=== PATIENT | male | born 1970 | race American Indian/Alaskan Native ===

== ENCOUNTER 2017-04-16 00:59 | Emergency (ER) | payer OTHER ==
--- NOTE | 2017-04-16 04:32 | XRay Report ---
FINAL REPORT EXAM: XR CHEST ROUTINE 2V HISTORY: Cough, Chest tightness TECHNIQUE: PA and lateral views of the chest were submitted. FINDINGS: The heart size and mediastinum appear normal. The lungs are clear. Pleural fluid is not seen. The bones and soft tissues appear well maintained. IMPRESSION: No active chest disease.
[2017-04-16 04:47] LABS: Basophils # (Auto) 0.1 K/mm3 (0.0-0.1); Eosinophils % (Auto) 0.6 % (0.0-4.3); Hematocrit 39.4 % (35.5-45.6); Hemoglobin 13.4 gm/dl (11.8-15.2); Lymphocytes # (Auto) 2.8 K/mm3 (1.2-5.4); Lymphocytes % (Auto) 41.5 % (13.4-35.0); Mean Corpuscular HGB Conc 34 % (32-34); Mean Corpuscular Hemoglobin 30 pg (28-32); Mean Corpuscular Volume 87 fl (84-94); Monocytes # (Auto) 0.5 K/mm3 (0.0-0.8); Platelet Count 202 K/mm3 (140-440); Red Blood Count 4.53 M/mm3 (3.65-5.03); Red Cell Distribution Width 13.1 % (13.2-15.2)
[2017-04-16 05:05] LABS: BUN/Creatinine Ratio 16; Blood Urea Nitrogen 13 mg/dL (9-20); Calcium 8.7 mg/dL (8.4-10.2); Hemolysis Index 10
[2017-04-16 08:39] LABS: Bacteria,Urine 1+ /HPF (Negative); Bilirubin,Urine NEG (Negative); Blood,Urine NEG (Negative); Color,Urine Yellow (Yellow); Mucus,Urine FEW /HPF; Nitrite,Urine NEG (Negative)
[2017-04-16] MEDS ORDERED: K-DUR PO ONE (14:18)
[2017-04-16] MEDS ORDERED: NACL 0.9% 1000 ML 1,000 ML IV ONE (14:18)
--- NOTE | 2017-04-16 15:00 | Emergency Department Report ---
ED General Adult HPI - General Chief complaint: Upper Respiratory Infection Stated complaint: FLU-LIKE SX Time Seen by Provider: 04/16/17 14:08 Source: patient Mode of arrival: Ambulatory Limitations: No Limitations - History of Present Illness Initial comments: Patient reports being flulike symptoms. He denies cough. He states he's had a minimal amount of diarrhea. He's had no shortness of No chest pain no abdominal pain. He does report poor oral intake. He states that he has not measured his temperature at home nor had any shaking chills. He does report a minimal amount of dysuria and a change in his urine odor. Patient has a history of HIV but denies any serious or life-threatening infections which would be AIDS defining or otherwise. He states he went to his infectious disease clinic in [facility] 2 weeks ago and had blood work. He does not know anything about his CD4 counts. However he has never been specifically told that they are low. He is compliant with his HIV medicines. -: days(s) Location: upper extremity, lower extremity (some myalgias) Quality: aching Consistency: intermittent, now resolved Improves with: none Worsens with: none Associated Symptoms: denies other symptoms, other (diarrhea and symptoms as above) Treatments Prior to Arrival: none - Related Data Previous Rx's Medication Instructions Recorded Last Taken Type Emtricita/Rilpivirine/Tenof Df 1 tab PO DAILY #30 tablet 05/17/14 08/08/14 Rx [Complera Tablet] Glipizide/Metformin HCl 2.5 mg PO DAILY #30 tablet 05/17/14 08/08/14 Rx [glipiZIDE-Metformin 2.5-250 mg] Losartan [Cozaar] 25 mg PO QDAY #30 tablet 05/17/14 08/07/14 Rx Cipro/Dexameth 0.3/0.1% [Ciprodex 2 drops OU BID #1 bottle 08/10/14 Unknown Rx Otic 0.3%-0.1%] Loratadine [Claritin] 10 mg PO DAILY #30 tablet 06/18/15 Unknown Rx predniSONE [Deltasone] 20 mg PO QDAY #5 tab 06/18/15 Unknown Rx Cyclobenzaprine [Flexeril] 10 mg PO TID PRN #20 tablet 08/03/15 Unknown Rx Ibuprofen [Motrin 800 MG tab] 800 mg PO Q8HR PRN #30 tablet 08/03/15 Unknown Rx Nitrofurantoin Monohyd/M-Cryst 100 mg PO BID #14 capsule 04/16/17 Unknown Rx [Macrobid 100 mg Capsule] Allergies Allergy/AdvReac Type Severity Reaction Status Date / Time cefazolin sodium [From Ancef] Allergy Rash Verified 05/11/13 01:26 clindamycin Allergy Rash Verified 05/11/13 01:26 sulfamethoxazole Allergy Rash Verified 05/11/13 01:26 [From Bactrim] trimethoprim [From Bactrim] Allergy Rash Verified 05/11/13 01:26 ED Review of Systems ROS: Stated complaint: FLU-LIKE SX Other details as noted in HPI Constitutional: malaise. denies: chills, fever, weakness Eyes: denies: eye pain, eye discharge, vision change ENT: denies: ear pain, throat pain Respiratory: denies: cough, shortness of breath, wheezing Cardiovascular: denies: chest pain, palpitations Endocrine: no symptoms reported Gastrointestinal: diarrhea, other (poor by mouth intake). denies: abdominal pain, nausea, vomiting Genitourinary: as per HPI, dysuria (minimal). denies: urgency Musculoskeletal: denies: back pain, joint swelling, arthralgia Skin: denies: rash, lesions Neurological: denies: headache, weakness, paresthesias Psychiatric: denies: anxiety, depression Hematological/Lymphatic: denies: easy bleeding, easy bruising ED Past Medical Hx - Past Medical History Previous Medical History?: Yes Hx Hypertension: Yes Hx Congestive Heart Failure: No Hx Diabetes: Yes Hx Sickle Cell Disease: No Hx Asthma: No Hx COPD: No Hx HIV: Yes Additional medical history: HIV+ - Surgical History Past Surgical History?: No - Social History Smoking Status: Current Every Day Smoker Substance Use Type: Alcohol - Medications Home Medications: Home Medications Medication Instructions Recorded Confirmed Last Taken Type Emtricita/Rilpivirine/Tenof Df 1 tab PO DAILY #30 tablet 05/17/14 08/09/1408/08 Rx [Complera Tablet] Glipizide/Metformin HCl 2.5 mg PO DAILY #30 tablet 05/17/14 08/09/14 08/08/14 Rx [glipiZIDE-Metformin 2.5-250 mg] Losartan [Cozaar] 25 mg PO QDAY #30 tablet 05/17/14 08/09/14 08/07/14 Rx Cipro/Dexameth 0.3/0.1% [Ciprodex 2 drops OU BID #1 bottle 08/10/14 Unknown Rx Otic 0.3%-0.1%] Loratadine [Claritin] 10 mg PO DAILY #30 tablet 06/18/15 Unknown Rx predniSONE [Deltasone] 20 mg PO QDAY #5 tab 06/18/15 Unknown Rx Cyclobenzaprine [Flexeril] 10 mg PO TID PRN #20 tablet 08/03/15 Unknown Rx Ibuprofen [Motrin 800 MG tab] 800 mg PO Q8HR PRN #30 tablet 08/03/15 Unknown Rx Nitrofurantoin Monohyd/M-Cryst 100 mg PO BID #14 capsule 04/16/17 Unknown Rx [Macrobid 100 mg Capsule] ED Physical Exam - General Limitations: No Limitations General appearance: alert, in no apparent distress - Head Head exam: Present: atraumatic, normocephalic - Eye Eye exam: Present: normal appearance, PERRL, EOMI. Absent: scleral icterus - ENT ENT exam: Present: normal orophraynx, mucous membranes dry (perhaps slightly) - Neck Neck exam: Present: normal inspection. Absent: tenderness, meningismus - Respiratory Respiratory exam: Present: normal lung sounds bilaterally. Absent: respiratory distress - Cardiovascular Cardiovascular Exam: Present: regular rate, normal rhythm. Absent: systolic murmur, diastolic murmur, rubs, gallop - GI/Abdominal GI/Abdominal exam: Present: soft, normal bowel sounds. Absent: distended, tenderness, guarding, rebound, rigid - Rectal Rectal exam: Present: deferred - Extremities Exam Extremities exam: Present: normal inspection - Back Exam Back exam: Present: normal inspection - Neurological Exam Neurological exam: Present: alert, oriented X3, CN II-XII intact. Absent: motor sensory deficit - Psychiatric Psychiatric exam: Present: normal affect, normal mood - Skin Skin exam: Present: warm, dry, intact, normal color. Absent: rash ED Course Vital Signs 04/16/17 04/16/17 03:58 08:08 Temperature 98.5 F 98.1 F Pulse Rate 84 78 Respiratory 20 14 Rate Blood Pressure 139/82 Blood Pressure 136/88 [Right] O2 Sat by Pulse 100 98 Oximetry - Reevaluation(s) Reevaluation #1: The patient was given IV fluid. He was given a dose of ceftriaxone. He is appropriate for outpatient management. He is encouraged to follow up with his infectious disease doctor as soon as possible in [facility]. He is also given information about the local health care clinic. He will be continued on Bactrim with his urine culture pending. 04/16/17 15:04 ED Medical Decision Making - Lab Data Result diagrams: 04/16/17 04:20 04/16/17 04:20 Laboratory Results - last 24 hr 04/16/17 04/16/17 04/16/17 04:10 04:20 04:20 WBC 6.7 RBC 4.53 Hgb 13.4 Hct 39.4 MCV 87 MCH 30 MCHC 34 RDW 13.1 L Plt Count 202 Lymph % (Auto) 41.5 H [place] % (Auto) 8.0 H Eos % (Auto) 0.6 Baso % (Auto) 1.0 Lymph # 2.8 [place] # 0.5 Eos # 0.0 Baso # 0.1 Seg Neutrophils % 48.9 Seg Neutrophils # 3.3 VBG pH Sodium 137 Potassium 3.2 L Chloride 96.8 L Carbon Dioxide 28 Anion Gap 15 BUN 13 Creatinine 0.8 Estimated GFR > 60 BUN/Creatinine Ratio 16 Glucose 320 H POC Glucose 327 H Calcium 8.7 Urine Color Urine Turbidity Urine pH Ur Specific [place] Urine Protein Urine Glucose (UA) Urine Ketones Urine Blood Urine Nitrite Urine Bilirubin Urine Urobilinogen Ur Leukocyte Esterase Urine WBC (Auto) Urine RBC (Auto) U Epithel Cells (Auto) Urine Bacteria (Auto) Urine Mucus 04/16/17 04/16/17 04:20 08:15 WBC RBC Hgb Hct MCV MCH MCHC RDW Plt Count Lymph % (Auto) [place] % (Auto) Eos % (Auto) Baso % (Auto) Lymph # [place] # Eos # Baso # Seg Neutrophils % Seg Neutrophils # VBG pH 7.411 Sodium Potassium Chloride Carbon Dioxide Anion Gap BUN Creatinine Estimated GFR BUN/Creatinine Ratio Glucose POC Glucose Calcium Urine Color Yellow Urine Turbidity Clear Urine pH 6.0 Ur Specific [place] 1.036 H Urine Protein 30 mg/dl Urine Glucose (UA) >=500 Urine Ketones Neg Urine Blood Neg Urine Nitrite Neg Urine Bilirubin Neg Urine Urobilinogen 4.0 Ur Leukocyte Esterase Sm Urine WBC (Auto) 18.0 H Urine RBC (Auto) 7.0 U Epithel Cells (Auto) < 1.0 Urine Bacteria (Auto) 1+ Urine Mucus Few Critical care attestation.: If time is entered above; I have spent that time in minutes in the direct care of this critically ill patient, excluding procedure time. ED Disposition Clinical Impression: Viral illness, Dehydration, HIV positive, Hypokalemia UTI (urinary tract infection) Qualifiers: Urinary tract infection type: site unspecified Hematuria presence: without hematuria Qualified Code(s): N39.0 - Urinary tract infection, site not specified Disposition: TO HOME OR SELFCARE Is pt being admited?: No Does the pt Need Aspirin: No Condition: Stable Instructions: Viral Syndrome (ED) Additional Instructions: Your urine tests indicated a possible urinary tract infection. This will be confirmed by culture which will be ready in 2-3 days. This should be checked by her follow-up doctor. Return if any fever, chills or acute change. Your somewhat dehydrated so you must increase her fluids and maintain your hydration status or this can recur. Your potassium was also mildly low. See instructions. Rx as directed. Follow up as soon as possible with your infectious disease clinic. Referrals: [facility] [Provider Group] - 2-3 Days usual, infectious disease clinic [Other] - KARAN Time of Disposition: 15:25
[2017-04-16] MEDS ORDERED: MACROBID PO ONE (15:30)
[2017-04-16 16:59] VITALS: BP 166/90
== END 2017-04-16 17:07 | disposition home or self-care (01) ==
LOC: ED 00:59
DX: E86.0 Dehydration (principal); N39.0 Urinary tract infection, site not specified; B34.9 Viral infection, unspecified; I10 Essential (primary) hypertension; E11.9 Type 2 diabetes mellitus without complications; F17.200 Nicotine dependence, unspecified, uncomplicated; Z88.1 Allergy status to other antibiotic agents
CPT/HCPCS: 36415; 71046; 80048; 81001; 82805; 82962; 85025; 87086; 87400; 96361; 96374; 99284; J7030; J1815

== ENCOUNTER 2017-12-17 12:12 | Emergency (ER) | payer MEDICARE, OTHER ==
--- NOTE | 2017-12-17 14:12 | Emergency Department Report ---
ED General Adult HPI - General Chief complaint: Extremity Injury, Upper Stated complaint: NUMB,SHARP PAIN ARMS/HANDS Time Seen by Provider: 12/17/17 14:11 Source: patient, family Mode of arrival: Ambulatory Limitations: No Limitations - History of Present Illness Initial comments: This is a 47-year-old male here report that he is having right arm pain 1 week. He said it started off as discomfort and numbness but now is sharp pain. Pain is 8 out of 10 and comes and goes. Denies any injury or redness or swelling. Denies any chest pain or shortness of breath. Patient said he does have some problems with his upper back at his spine but he does not remember what it is. He denies any recent fall. Patient does have a history of diabetes , HIV and hypertension and he does have a primary care doctor. He said he has not taken any medication for pain. Denies any headache blurred vision, dizziness. Denies any nausea or vomiting. MD Complaint: right arm numbness Onset/Timin -: week(s) Location: right, upper extremity Radiation: non-radiation Severity scale (0 -10): 8 Quality: sharp Consistency: intermittent Improves with: none Worsens with: none Associated Symptoms: denies: confusion, chest pain, cough, diaphoresis, fever/ chills, headaches, loss of appetite, malaise, nausea/vomiting, rash, seizure, shortness of breath, syncope, weakness Treatments Prior to Arrival: none - Related Data Previous Rx's Medication Instructions Recorded Last Taken Type Emtricita/Rilpivirine/Tenof Df 1 tab PO DAILY #30 tablet 05/17/14 08/08/14 Rx [Complera Tablet] Glipizide/Metformin HCl 2.5 mg PO DAILY #30 tablet 05/17/14 08/08/14 Rx [glipiZIDE-Metformin 2.5-250 mg] Losartan [Cozaar] 25 mg PO QDAY #30 tablet 05/17/14 08/07/14 Rx Cipro/Dexameth 0.3/0.1% [Ciprodex 2 drops OU BID #1 bottle 08/10/14 Unknown Rx Otic 0.3%-0.1%] Loratadine [Claritin] 10 mg PO DAILY #30 tablet 06/18/15 Unknown Rx predniSONE [Deltasone] 20 mg PO QDAY #5 tab 06/18/15 Unknown Rx Cyclobenzaprine [Flexeril] 10 mg PO TID PRN #20 tablet 08/03/15 Unknown Rx Ibuprofen [Motrin 800 MG tab] 800 mg PO Q8HR PRN #30 tablet 08/03/15 Unknown Rx Nitrofurantoin Monohyd/M-Cryst 100 mg PO BID #14 capsule 04/16/17 Unknown Rx [Macrobid 100 mg Capsule] Magnesium Oxide [Mag-Ox] 400 mg PO QDAY 2 Days #2 tablet 12/17/17 Unknown Rx Potassium Chloride [K-Dur] 20 meq PO BID 2 Days #4 tab 12/17/17 Unknown Rx Tramadol HCl [Ultram] 50 mg PO Q8H PRN #6 tablet 12/17/17 Unknown Rx Allergies Allergy/AdvReac Type Severity Reaction Status Date / Time cefazolin sodium [From Ancef] Allergy Rash Verified 05/11/13 01:26 clindamycin Allergy Rash Verified 05/11/13 01:26 sulfamethoxazole Allergy Rash Verified 05/11/13 01:26 [From Bactrim] trimethoprim [From Bactrim] Allergy Rash Verified 05/11/13 01:26 ED Review of Systems ROS: Stated complaint: NUMB,SHARP PAIN ARMS/HANDS Other details as noted in HPI Constitutional: denies: chills, fever Eyes: denies: eye pain, eye discharge, vision change ENT: denies: ear pain, throat pain, congestion Respiratory: denies: cough, shortness of breath, SOB with exertion, SOB at rest , stridor, wheezing Cardiovascular: denies: chest pain, palpitations, edema, syncope Gastrointestinal: denies: abdominal pain, nausea, vomiting, diarrhea Musculoskeletal: arthralgia. denies: back pain, joint swelling, myalgia Skin: denies: rash, lesions Neurological: denies: headache, weakness, numbness, paresthesias, confusion, abnormal gait, vertigo Hematological/Lymphatic: easy bleeding ED Past Medical Hx - Past Medical History Previous Medical History?: Yes Hx Hypertension: Yes Hx Congestive Heart Failure: No Hx Diabetes: Yes Hx Sickle Cell Disease: No Hx Asthma: No Hx COPD: No Hx HIV: Yes Additional medical history: HIV+ - Surgical History Past Surgical History?: No - Family History Family history: hypertension - Social History Smoking Status: Current Every Day Smoker Substance Use Type: None - Medications Home Medications: Home Medications Medication Instructions Recorded Confirmed Last Taken Type Emtricita/Rilpivirine/Tenof Df 1 tab PO DAILY #30 tablet 05/17/14 08/09/1408/08 Rx [Complera Tablet] Glipizide/Metformin HCl 2.5 mg PO DAILY #30 tablet 05/17/14 08/09/14 08/08/14 Rx [glipiZIDE-Metformin 2.5-250 mg] Losartan [Cozaar] 25 mg PO QDAY #30 tablet 05/17/14 08/09/14 08/07/14 Rx Cipro/Dexameth 0.3/0.1% [Ciprodex 2 drops OU BID #1 bottle 08/10/14 Unknown Rx Otic 0.3%-0.1%] Loratadine [Claritin] 10 mg PO DAILY #30 tablet 06/18/15 Unknown Rx predniSONE [Deltasone] 20 mg PO QDAY #5 tab 06/18/15 Unknown Rx Cyclobenzaprine [Flexeril] 10 mg PO TID PRN #20 tablet 08/03/15 Unknown Rx Ibuprofen [Motrin 800 MG tab] 800 mg PO Q8HR PRN #30 tablet 08/03/15 Unknown Rx Nitrofurantoin Monohyd/M-Cryst 100 mg PO BID #14 capsule 04/16/17 Unknown Rx [Macrobid 100 mg Capsule] Magnesium Oxide [Mag-Ox] 400 mg PO QDAY 2 Days #2 tablet 12/17/17 Unknown Rx Potassium Chloride [K-Dur] 20 meq PO BID 2 Days #4 tab 12/17/17 Unknown Rx Tramadol HCl [Ultram] 50 mg PO Q8H PRN #6 tablet 12/17/17 Unknown Rx ED Physical Exam - General Limitations: No Limitations General appearance: alert, in no apparent distress - Head Head exam: Present: atraumatic, normocephalic, normal inspection, other (normal exam) - Eye Eye exam: Present: normal appearance, PERRL, EOMI. Absent: nystagmus Pupils: Present: normal accommodation - ENT ENT exam: Present: normal exam, normal orophraynx, mucous membranes moist, TM's normal bilaterally, normal external ear exam - Neck Neck exam: Present: normal inspection, full ROM, other (no C-spine tenderness). Absent: tenderness, meningismus, lymphadenopathy - Respiratory Respiratory exam: Present: normal lung sounds bilaterally. Absent: respiratory distress, chest wall tenderness - Cardiovascular Cardiovascular Exam: Present: regular rate, normal rhythm, normal heart sounds. Absent: systolic murmur, diastolic murmur - Extremities Exam Extremities exam: Present: normal inspection, full ROM, normal capillary refill , other (No cce. + 2 pulses in all extremities, no neurovascular compromise. Nontender to palpate to extremities.). Absent: tenderness, pedal edema, joint swelling, calf tenderness - Back Exam Back exam: Present: normal inspection, full ROM, other (ambulates without any difficulties). Absent: tenderness, CVA tenderness (R), CVA tenderness (L), muscle spasm, paraspinal tenderness, vertebral tenderness, rash noted - Neurological Exam Neurological exam: Present: alert, oriented X3, normal gait, reflexes normal. Absent: motor sensory deficit - Psychiatric Psychiatric exam: Present: normal affect, normal mood - Skin Skin exam: Present: warm, dry, intact, normal color. Absent: rash ED Course Vital Signs 12/17/17 12/17/17 12/17/17 12:31 14:42 15:12 Temperature 98.9 F Pulse Rate 75 Respiratory 18 18 18 Rate Blood Pressure 144/90 O2 Sat by Pulse 98 Oximetry 12/17/17 12/17/17 16:47 17:07 Temperature Pulse Rate 71 Respiratory 18 Rate Blood Pressure 182/96 O2 Sat by Pulse 99 98 Oximetry - Reevaluation(s) Reevaluation #1: 12/17/17 16:42 Patient given normal saline 1 L, he was given Toradol 30 mg IM for relief of pain. Patient also given magnesium 400 mg and potassium 40 mEq. He has a potassium of 3.1 and magnesium of 1.5. I discuss possibility of low magnesium causing pain with patient and he voiced understanding. He said he feels better at present. ED Medical Decision Making - Lab Data Result diagrams: 12/17/17 14:28 12/17/17 14:28 Lab Results 12/17/17 12/17/17 12/17/17 Range/Units 14:07 14:28 14:28 WBC 5.1 (4.5-11.0) K/mm3 RBC 4.44 (3.65-5.03) M/mm3 Hgb 13.3 (11.8-15.2) gm/dl Hct 38.5 (35.5-45.6) % MCV 87 (84-94) fl MCH 30 (28-32) pg MCHC 35 H (32-34) % RDW 13.4 (13.2-15.2) % Plt Count 231 (140-440) K/mm3 Lymph % (Auto) 48.3 H (13.4-35.0) % Major % (Auto) 5.7 (0.0-7.3) % Eos % (Auto) 1.9 (0.0-4.3) % Baso % (Auto) 0.6 (0.0-1.8) % Lymph # 2.5 (1.2-5.4) K/mm3 Major # 0.3 (0.0-0.8) K/mm3 Eos # 0.1 (0.0-0.4) K/mm3 Baso # 0.0 (0.0-0.1) K/mm3 Seg Neutrophils % 43.5 (40.0-70.0) % Seg Neutrophils # 2.2 (1.8-7.7) K/mm3 Sodium 135 L (137-145) mmol/L Potassium 3.1 L (3.6-5.0) mmol/L Chloride 93.1 L (98-107) mmol/L Carbon Dioxide 33 H (22-30) mmol/L Anion Gap 12 mmol/L BUN 16 (9-20) mg/dL Creatinine 0.9 (0.8-1.5) mg/dL Estimated GFR > 60 ml/min BUN/Creatinine Ratio 18 % Glucose 283 H (75-100) mg/dL POC Glucose 252 H (70-105) Calcium 9.1 (8.4-10.2) mg/dL Magnesium (1.7-2.3) mg/dL Total Bilirubin (0.1-1.2) mg/dL Direct Bilirubin (0-0.2) mg/dL Indirect Bilirubin mg/dL AST (5-40) units/L ALT (7-56) units/L Alkaline Phosphatase (35-129) units/L Troponin T < 0.010 (0.00-0.029) ng/mL Total Protein (6.3-8.2) g/dL Albumin (3.9-5) g/dL Albumin/Globulin Ratio % 12/17/17 Range/Units 14:28 WBC (4.5-11.0) K/mm3 RBC (3.65-5.03) M/mm3 Hgb (11.8-15.2) gm/dl Hct (35.5-45.6) % MCV (84-94) fl MCH (28-32) pg MCHC (32-34) % RDW (13.2-15.2) % Plt Count (140-440) K/mm3 Lymph % (Auto) (13.4-35.0) % Major % (Auto) (0.0-7.3) % Eos % (Auto) (0.0-4.3) % Baso % (Auto) (0.0-1.8) % Lymph # (1.2-5.4) K/mm3 Major # (0.0-0.8) K/mm3 Eos # (0.0-0.4) K/mm3 Baso # (0.0-0.1) K/mm3 Seg Neutrophils % (40.0-70.0) % Seg Neutrophils # (1.8-7.7) K/mm3 Sodium (137-145) mmol/L Potassium (3.6-5.0) mmol/L Chloride (98-107) mmol/L Carbon Dioxide (22-30) mmol/L Anion Gap mmol/L BUN (9-20) mg/dL Creatinine (0.8-1.5) mg/dL Estimated GFR ml/min BUN/Creatinine Ratio % Glucose (75-100) mg/dL POC Glucose (70-105) Calcium (8.4-10.2) mg/dL Magnesium 1.50 L (1.7-2.3) mg/dL Total Bilirubin 0.30 (0.1-1.2) mg/dL Direct Bilirubin < 0.2 (0-0.2) mg/dL Indirect Bilirubin 0.1 mg/dL AST 10 (5-40) units/L ALT 8 (7-56) units/L Alkaline Phosphatase 48 (35-129) units/L Troponin T (0.00-0.029) ng/mL Total Protein 8.9 H (6.3-8.2) g/dL Albumin 3.7 L (3.9-5) g/dL Albumin/Globulin Ratio 0.7 % - Radiology Data Radiology results: report reviewed X-ray of C-spine and T-spine dictated by radiologist and report reviewed by myself. Patient with degenerative disc disease multilevel. No acute findings. The reports below. Findings [address] [address] XRay Report Signed Patient: MICAH MANCUSO JR MR#: [id number] : 1970 Acct:[id number] Age/Sex: 47 / M ADM Date: 12/17/17 Loc: ED Attending Dr: Ordering Physician: PHOENIX RIVERA Date of Service: 12/17/17 Procedure(s): XR spine thoracic 2V Accession Number(s): [id number] cc: PHOENIX RIVERA Fluoro Time In Minutes: FINAL REPORT PROCEDURE: Three-view thoracic spine series TECHNIQUE: AP, lateral view and swimmer's lateral view were obtained. HISTORY: radiculupathy pain rue COMPARISON: No prior studies are available for comparison. FINDINGS: No fracture or subluxation is seen. Small anterior osteophytic spurs are present in the lower thoracic intervertebral disc spaces directed anteriorly. There is mild lower thoracic scoliosis convex to the left. Bone density appears normal. IMPRESSION: Mild degenerative disc disease and scoliosis as described. No other abnormalities are seen per Transcribed By: DFN Dictated By: JEREMY OWENS MD Electronically Authenticated By: JEREMY OWENS MD Signed Date/Time: 12/17/17 153 DD/ 153 TD/TT: 12/17/17 [address] [address] XRay Report Signed Patient: MICAH MANCUSO JR MR#: [id number] : 1970 Acct:[id number] Age/Sex: 47 / M ADM Date: 12/17/17 Loc: ED Attending Dr: Ordering Physician: PHOENIX RIVERA Date of Service: 12/17/17 Procedure(s): XR spine cervical 2-3V Accession Number(s): [id number] cc: PHOENIX RIVERA Fluoro Time In Minutes: FINAL REPORT PROCEDURE: Three view cervical spine series TECHNIQUE: AP, lateral view, odontoid view and swimmer's lateral views were obtained. HISTORY: radiculopathy pain RUE COMPARISON: No prior studies are available for comparison. FINDINGS: No fracture or subluxation is seen. Anterior osteophytic spurring is visualized at C5-6 C6-7 disc spaces. Disc spaces otherwise are well maintained. Prevertebral soft tissues appear normal. IMPRESSION: Degenerative disc disease C5-C6 and C6-C7 as described. No other abnormalities are seen. Transcribed By: DFN Dictated By: JEREMY OWENS MD Electronically Authenticated By: JEREMY OWENS MD Signed Date/Time: 12/17/171537 DD/ 37 TD/TT: 12/17/171537 Critical care attestation.: If time is entered above; I have spent that time in minutes in the direct care of this critically ill patient, excluding procedure time. ED Disposition Clinical Impression: Arthralgia of right forearm, Multilevel degenerative disc disease, Hypokalemia , Hypomagnesemia Disposition: - TO HOME OR SELFCARE Is pt being admited?: No Does the pt Need Aspirin: No Condition: Stable Instructions: Magnesium Oxide (By mouth), Hypokalemia (ED), Hypomagnesemia (ED ), Arthralgia (ED), Degenerative Disc Disease (ED) Additional Instructions: Follow-up the primary care doctor regarding in electrolyte imbalance. He will need to have repeat laboratory studies Take potassium and magnesium as prescribed Take tramadol as prescribed appears to not drive or operate heavy machinery while taking this medication as it causes drowsiness Prescriptions: Magnesium Oxide [Mag-Ox] 400 mg PO QDAY 2 Days #2 tablet Potassium Chloride [K-Dur] 20 meq PO BID 2 Days #4 tab Tramadol HCl [Ultram] 50 mg PO Q8H PRN #6 tablet PRN Reason: pain Referrals: PRIMARY [facility] [Primary Care Provider] - 12/19/17 Forms: Work/School Release Form(ED)
[2017-12-17] MEDS ORDERED: TORADOL IM ONE (14:21)
[2017-12-17 14:41] LABS: Basophils % (Auto) 0.6 % (0.0-1.8); Eosinophils # (Auto) 0.1 K/mm3 (0.0-0.4); Eosinophils % (Auto) 1.9 % (0.0-4.3); Hematocrit 38.5 % (35.5-45.6); Hemoglobin 13.3 gm/dl (11.8-15.2); Lymphocytes # (Auto) 2.5 K/mm3 (1.2-5.4); Lymphocytes % (Auto) 48.3 % (13.4-35.0); Mean Corpuscular HGB Conc 35 % (32-34); Mean Corpuscular Hemoglobin 30 pg (28-32); Mean Corpuscular Volume 87 fl (84-94); Monocytes # (Auto) 0.3 K/mm3 (0.0-0.8); Monocytes % (Auto) 5.7 % (0.0-7.3); Platelet Count 231 K/mm3 (140-440); Red Blood Count 4.44 M/mm3 (3.65-5.03); Red Cell Distribution Width 13.4 % (13.2-15.2)
[2017-12-17 14:53] LABS: BUN/Creatinine Ratio 18; Blood Urea Nitrogen 16 mg/dL (9-20); Calcium 9.1 mg/dL (8.4-10.2); Hemolysis Index 1
[2017-12-17 14:56] LABS: Alanine Aminotransferase 8 units/L (7-56); Albumin 3.7 g/dL (3.9-5)
[2017-12-17 15:05] LABS: Bilirubin,Direct < 0.2 mg/dL (0-0.2)
[2017-12-17] MEDS ORDERED: K-DUR PO ONE (15:22)
[2017-12-17] MEDS ORDERED: NACL 0.9% 1000 ML 1,000 ML IV ONE (15:22)
--- NOTE | 2017-12-17 15:38 | XRay Report ---
FINAL REPORT PROCEDURE: Three-view thoracic spine series TECHNIQUE: AP, lateral view and swimmer's lateral view were obtained. HISTORY: radiculupathy pain rue COMPARISON: No prior studies are available for comparison. FINDINGS: No fracture or subluxation is seen. Small anterior osteophytic spurs are present in the lower thoracic intervertebral disc spaces directed anteriorly. There is mild lower thoracic scoliosis convex to the left. Bone density appears normal. IMPRESSION: Mild degenerative disc disease and scoliosis as described. No other abnormalities are seen per
--- NOTE | 2017-12-17 15:39 | XRay Report ---
FINAL REPORT PROCEDURE: Three view cervical spine series TECHNIQUE: AP, lateral view, odontoid view and swimmer's lateral views were obtained. HISTORY: radiculopathy pain RUE COMPARISON: No prior studies are available for comparison. FINDINGS: No fracture or subluxation is seen. Anterior osteophytic spurring is visualized at C5-6 C6-7 disc spaces. Disc spaces otherwise are well maintained. Prevertebral soft tissues appear normal. IMPRESSION: Degenerative disc disease C5-C6 and C6-C7 as described. No other abnormalities are seen.
[2017-12-17 17:12] VITALS: BP 182/96
[2017-12-18] MEDS ORDERED: MAG-OX PO ONE (16:24)
== END 2017-12-17 17:12 | disposition home or self-care (01) ==
LOC: ED 12:12
DX: M79.601 Pain in right arm (principal); G90.3 Multi-system degeneration of the autonomic nervous system; E87.6 Hypokalemia; E83.42 Hypomagnesemia; I10 Essential (primary) hypertension; E11.9 Type 2 diabetes mellitus without complications; F17.200 Nicotine dependence, unspecified, uncomplicated; Z88.1 Allergy status to other antibiotic agents; Z88.2 Allergy status to sulfonamides; Z88.6 Allergy status to analgesic agent; Z79.899 Other long term (current) drug therapy
CPT/HCPCS: 36415; 72040; 72070; 80048; 80074; 82962; 83735; 84484; 85025; 93005; 93010; 96372; 99284; J1885; J7030

== ENCOUNTER 2018-05-09 09:32 | Emergency (ER) | payer OTHER ==
[2018-05-09 09:43] VITALS: BP 184/104
[2018-05-09] MEDS ORDERED: PROVENTIL IH ONE (09:59)
[2018-05-09] MEDS ORDERED: ATROVENT IH ONE (09:59)
[2018-05-09] MEDS ORDERED: SOLU-Medrol IV ONE (09:59)
[2018-05-09 10:05] LABS: Basophils % (Auto) 0.8 % (0.0-1.8); Eosinophils # (Auto) 0.2 K/mm3 (0.0-0.4); Eosinophils % (Auto) 3.2 % (0.0-4.3); Hematocrit 36.9 % (35.5-45.6); Hemoglobin 12.7 gm/dl (11.8-15.2); Lymphocytes # (Auto) 2.1 K/mm3 (1.2-5.4); Lymphocytes % (Auto) 33.6 % (13.4-35.0); Mean Corpuscular HGB Conc 34 % (32-34); Mean Corpuscular Volume 86 fl (84-94); Monocytes # (Auto) 0.4 K/mm3 (0.0-0.8); Monocytes % (Auto) 6.6 % (0.0-7.3); Platelet Count 218 K/mm3 (140-440); Red Blood Count 4.28 M/mm3 (3.65-5.03); Red Cell Distribution Width 13.4 % (13.2-15.2)
[2018-05-09 10:14] LABS: BUN/Creatinine Ratio 18; Blood Urea Nitrogen 11 mg/dL (9-20); Calcium 8.5 mg/dL (8.4-10.2); Hemolysis Index 44
--- NOTE | 2018-05-09 11:10 | XRay Report ---
FINAL REPORT EXAM: XR CHEST ROUTINE 2V HISTORY: shortness of breath TECHNIQUE: Frontal and lateral chest radiographs. PRIORS: 04/16/2017. FINDINGS: The cardiomediastinal silhouette is normal. No focal consolidation. No pleural effusion. No pneumothorax. No acute osseous abnormality. IMPRESSION: No acute cardiopulmonary process.
--- NOTE | 2018-05-09 13:13 | Emergency Department Report ---
- General Chief Complaint: Upper Respiratory Infection Stated Complaint: CHEST CONGESTED Time Seen by Provider: 05/09/18 09:53 Source: patient Mode of arrival: Ambulatory Limitations: No Limitations - History of Present Illness Initial Comments: Patient is a 47-year-old Female with past medical history HIV positive diabetes hypertension who is presenting with a cough cold congestions symptom disease for approximately 2 months. Patient has intermittent yellow sputum production chills. Patient has had some shortness of breath as well. Patient had several weeks where he was ill that he started feeling slightly improved within this worsened over the last month. Patient denies any nausea vomiting sore throat neck stiffness at this time. - Related Data Previous Rx's Medication Instructions Recorded Last Taken Type Emtricita/Rilpivirine/Tenof Df 1 tab PO DAILY #30 tablet 05/17/14 08/08/14 Rx [Complera Tablet] Glipizide/Metformin HCl 2.5 mg PO DAILY #30 tablet 05/17/14 08/08/14 Rx [glipiZIDE-Metformin 2.5-250 mg] Losartan [Cozaar] 25 mg PO QDAY #30 tablet 05/17/14 08/07/14 Rx Cipro/Dexameth 0.3/0.1% [Ciprodex 2 drops OU BID #1 bottle 08/10/14 Unknown Rx Otic 0.3%-0.1%] Loratadine [Claritin] 10 mg PO DAILY #30 tablet 06/18/15 Unknown Rx predniSONE [Deltasone] 20 mg PO QDAY #5 tab 06/18/15 Unknown Rx Cyclobenzaprine [Flexeril] 10 mg PO TID PRN #20 tablet 08/03/15 Unknown Rx Ibuprofen [Motrin 800 MG tab] 800 mg PO Q8HR PRN #30 tablet 08/03/15 Unknown Rx Nitrofurantoin Monohyd/M-Cryst 100 mg PO BID #14 capsule 04/16/17 Unknown Rx [Macrobid 100 mg Capsule] Magnesium Oxide [Mag-Ox] 400 mg PO QDAY 2 Days #2 tablet 12/17/17 Unknown Rx Potassium Chloride [K-Dur] 20 meq PO BID 2 Days #4 tab 12/17/17 Unknown Rx Tramadol HCl [Ultram] 50 mg PO Q8H PRN #6 tablet 12/17/17 Unknown Rx ALBUTEROL Inhaler (OR & NICU) 2 puff IH QID PRN #1 inhalation 05/09/18 Unknown Rx [ProAir HFA Inhaler] Doxycycline [Vibramycin CAP] 100 mg PO Q12HR #14 capsule 05/09/18 Unknown Rx HYDROcodone/APAP 5-325 [[place] 1 each PO Q4HR PRN #12 tablet 05/09/18 Unknown Rx 5/325] Allergies Allergy/AdvReac Type Severity Reaction Status Date / Time cefazolin sodium [From Ancef] Allergy Rash Verified 05/11/13 01:26 clindamycin Allergy Rash Verified 05/11/13 01:26 sulfamethoxazole Allergy Rash Verified 05/11/13 01:26 [From Bactrim] trimethoprim [From Bactrim] Allergy Rash Verified 05/11/13 01:26 ED Review of Systems ROS: Stated complaint: CHEST CONGESTED Other details as noted in HPI Comment: All other systems reviewed and negative ED Past Medical Hx - Past Medical History Hx Hypertension: Yes Hx Congestive Heart Failure: No Hx Diabetes: Yes Hx Sickle Cell Disease: No Hx Asthma: No Hx COPD: No Hx HIV: Yes Additional medical history: HIV+ - Surgical History Past Surgical History?: No - Social History Smoking Status: Current Every Day Smoker Substance Use Type: None - Medications Home Medications: Home Medications Medication Instructions Recorded Confirmed Last Taken Type Emtricita/Rilpivirine/Tenof Df 1 tab PO DAILY #30 tablet 05/17/14 08/09/14 08/08/14 Rx [Complera Tablet] Glipizide/Metformin HCl 2.5 mg PO DAILY #30 tablet 05/17/14 08/09/14 08/08/14 Rx [glipiZIDE-Metformin 2.5-250 mg] Losartan [Cozaar] 25 mg PO QDAY #30 tablet 05/17/14 08/09/14 08/07/14 Rx Cipro/Dexameth 0.3/0.1% [Ciprodex 2 drops OU BID #1 bottle 08/10/14 Unknown Rx Otic 0.3%-0.1%] Loratadine [Claritin] 10 mg PO DAILY #30 tablet 06/18/15 Unknown Rx predniSONE [Deltasone] 20 mg PO QDAY #5 tab 06/18/15 Unknown Rx Cyclobenzaprine [Flexeril] 10 mg PO TID PRN #20 tablet 08/03/15 Unknown Rx Ibuprofen [Motrin 800 MG tab] 800 mg PO Q8HR PRN #30 tablet 08/03/15 Unknown Rx Nitrofurantoin Monohyd/M-Cryst 100 mg PO BID #14 capsule 04/16/17 Unknown Rx [Macrobid 100 mg Capsule] Magnesium Oxide [Mag-Ox] 400 mg PO QDAY 2 Days #2 tablet 12/17/17 Unknown Rx Potassium Chloride [K-Dur] 20 meq PO BID 2 Days #4 tab 12/17/17 Unknown Rx Tramadol HCl [Ultram] 50 mg PO Q8H PRN #6 tablet 12/17/17 Unknown Rx ALBUTEROL Inhaler (OR & NICU) 2 puff IH QID PRN #1 inhalation 05/09/18 Unknown Rx [ProAir HFA Inhaler] Doxycycline [Vibramycin CAP] 100 mg PO Q12HR #14 capsule 05/09/18 Unknown Rx HYDROcodone/APAP 5-325 [[place] 1 each PO Q4HR PRN #12 tablet 05/09/18 Unknown Rx 5/325] ED Physical Exam - General Limitations: No Limitations General appearance: alert, in no apparent distress - Head Head exam: Present: atraumatic, normocephalic - Eye Eye exam: Present: normal appearance, PERRL, EOMI - ENT ENT exam: Present: mucous membranes moist - Neck Neck exam: Present: normal inspection - Respiratory Respiratory exam: Present: wheezes. Absent: normal lung sounds bilaterally, respiratory distress, rales - Cardiovascular Cardiovascular Exam: Present: regular rate, normal rhythm. Absent: systolic murmur, diastolic murmur, rubs, gallop - GI/Abdominal GI/Abdominal exam: Present: soft, normal bowel sounds. Absent: distended, tenderness, guarding, rebound, rigid - Rectal Rectal exam: Present: deferred - Extremities Exam Extremities exam: Present: normal inspection - Back Exam Back exam: Present: normal inspection - Neurological Exam Neurological exam: Present: alert, oriented X3 - Psychiatric Psychiatric exam: Present: normal affect, normal mood - Skin Skin exam: Present: warm, dry, intact, normal color. Absent: rash ED Course Vital Signs 05/09/18 05/09/18 05/09/18 09:37 11:43 11:53 Temperature 98.2 F Pulse Rate 97 H Pulse Rate [ 88 89 Bilateral Upper Lobe] Respiratory 18 Rate Respiratory 18 18 Rate [Bilateral Upper Lobe] Blood Pressure 184/104 O2 Sat by Pulse 97 Oximetry ED Medical Decision Making - Lab Data Result diagrams: 05/09/18 09:45 05/09/18 09:45 - EKG Data -: EKG Interpreted by Me - EKG Data 05/09/18 13:12 Patient's EKG shows a rate of 90 and sinus rhythm. Patient has evidence of LVH. Munday is normal intervals show prolonged QT. There is no ST segment elevation or depressions. The time of interpretation is 10:30. - Radiology Data Chest x-ray shows no acute process - Medical Decision Making Patient received an hour-long neb treatment. Patient's did have resolution of symptoms his wheezing has resolved. Patient because of the duration of symptoms and HIV status of be started on antibiotics and patient be discharged home with meds for symptomatic relief. Critical care attestation.: If time is entered above; I have spent that time in minutes in the direct care of this critically ill patient, excluding procedure time. ED Disposition Clinical Impression: Acute bronchitis Qualifiers: Bronchitis organism: unspecified organism Qualified Code(s): J20.9 - Acute bronchitis, unspecified Disposition: DC-01 TO HOME OR SELFCARE Is pt being admited?: No Does the pt Need Aspirin: No Condition: Stable Instructions: Acute Bronchitis (ED) Referrals: LEONOR METZ MD [Primary Care Provider] - 3-5 Days Time of Disposition: 13:14
== END 2018-05-09 13:25 | disposition home or self-care (01) ==
LOC: ED 09:32
DX: J20.9 Acute bronchitis, unspecified (principal); I10 Essential (primary) hypertension; E11.9 Type 2 diabetes mellitus without complications; F17.200 Nicotine dependence, unspecified, uncomplicated; Z88.2 Allergy status to sulfonamides; Z88.1 Allergy status to other antibiotic agents; Z79.84 Long term (current) use of oral hypoglycemic drugs
CPT/HCPCS: 36415; 71046; 80048; 85025; 93005; 93010; 94640; 96374; 99284; J2930

== ENCOUNTER 2019-01-19 13:39 | Emergency (ER) | payer OTHER ==
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
[2019-01-19] MEDS ORDERED: ACETAMINOPHEN 500 MG TAB PO ONE (17:25)
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
[2019-01-19 19:26] VITALS: BP 135/101
[2019-01-19] MEDS ORDERED: KETOROLAC 30 MG/1 ML INJ IM ONE (20:06)
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
== END 2019-01-19 20:49 | disposition home or self-care (01) ==
LOC: ED 13:39
DX: S16.1XXA Strain of muscle, fascia and tendon at neck level, initial encounter (principal); R51 Headache; I10 Essential (primary) hypertension; E11.9 Type 2 diabetes mellitus without complications; F17.200 Nicotine dependence, unspecified, uncomplicated; Z21 Asymptomatic human immunodeficiency virus [HIV] infection status; Z79.899 Other long term (current) drug therapy; Z88.2 Allergy status to sulfonamides; Z88.8 Allergy status to other drugs, medicaments and biological substances; V49.59XA Passenger injured in collision with other motor vehicles in traffic accident, initial encounter; Y93.89 Activity, other specified; Y92.410 Unspecified street and highway as the place of occurrence of the external cause; Y99.8 Other external cause status
CPT/HCPCS: 70450; 72125; 96372; 99283; J1885

== ENCOUNTER 2020-12-06 18:01 | Emergency (ER) | payer OTHER ==
[2020-12-06 19:24] VITALS: BP 187/98
[2020-12-06] MEDS ORDERED: FLUORESCEIN 1 MG STRIP OP ONE (20:34)
[2020-12-06] MEDS ORDERED: TETRACAINE 0.5% OPHTH SOLN 4ML OU ONE (20:34)
[2020-12-06] MEDS ORDERED: IBUPROFEN 600 MG TAB PO ONE (20:34)
[2020-12-06] MEDS ORDERED: BALANCED SALT IRRIG (BSS) OPHTH SOLN 15 ML OU ONE (20:34)
--- NOTE | 2020-12-06 20:39 | Emergency Department Report ---
ED Eye Problem HPI - General Chief complaint: Headache Stated complaint: BLOOD PRESSURE/MIGRAINE Time Seen by Provider: 12/06/20 20:33 Source: patient Mode of arrival: Ambulatory Limitations: No Limitations - History of Present Illness Initial comments: The patient was evaluated in the emergency department for symptoms described in the history of present illness. He/she was evaluated in the context of the global COVID-19 pandemic, which necessitated consideration that the patient might be at risk for infection with the virus that causes COVID-19. I nstitutional protocols and algorithms that pertain to the evaluation of patients at risk for COVID-19 are in a state of rapid change based on information released by regulatory bodies including the CDC and federal and state organizations. These policies and algorithms were followed during the patient's care in the emergency department. Please note that these policies, procedures and recommendations changed on a rapid basis. 50-year-old -[place] male that is noncompliant with his HIV and hypertension presents to the emergency room for right thigh pain, photophobia and drainage that started this morning. Patient admits to a headache. Patient states he has not been on his HIV medicine or hypertension for well over 6 months. Patient states that he is usually followed by [facility] but has not been in a while. Patient denies any fever chills no nausea no vomiting not vaccinated. Has only taking an aspirin. chief complaint: eye pain, eye redness -: This morning Onset Description: sudden Location: right eye If Injury: none Eye Symptoms: redness, pain Severity: severe Severity scale (0 -10): 9 If Pain, Quality: aching, throbbing Consistency: constant Associated Symptoms: headache Treatments Prior to Arrival: none - Related Data Patient Tetanus UTD: No Previous Rx's Medication Instructions Recorded Last Taken Type Emtricita/Rilpivirine/Tenof Df 1 tab PO DAILY #30 tablet 05/17/14 08/08/14 Rx [Complera Tablet] Glipizide/Metformin HCl 2.5 mg PO DAILY #30 tablet 05/17/14 08/08/14 Rx [glipiZIDE-Metformin 2.5-250 mg] Losartan [Cozaar] 25 mg PO QDAY #30 tablet 05/17/14 08/07/14 Rx Cipro/Dexameth 0.3/0.1% [Ciprodex 2 drops OU BID #1 bottle 08/10/14 Unknown Rx Otic 0.3%-0.1%] Loratadine (Nf) [Claritin] 10 mg PO DAILY #30 tablet 06/18/15 Unknown Rx predniSONE [Deltasone] 20 mg PO QDAY #5 tab 06/18/15 Unknown Rx Cyclobenzaprine [Flexeril] 10 mg PO TID PRN #20 tablet 08/03/15 Unknown Rx Nitrofurantoin Monohyd/M-Cryst 100 mg PO BID #14 capsule 04/16/17 Unknown Rx [Macrobid 100 mg Capsule] Magnesium Oxide [Mag-Ox] 400 mg PO QDAY 2 Days #2 tablet 12/17/17 Unknown Rx Potassium Chloride [K-Dur] 20 meq PO BID 2 Days #4 tab 12/17/17 Unknown Rx Tramadol HCl [Ultram] 50 mg PO Q8H PRN #6 tablet 12/17/17 Unknown Rx Albuterol Mdi (or & Nicu Only) 2 puff IH QID PRN #1 inhalation 05/09/18 Unknown Rx [ProAir HFA Inhaler] DOXYCYCLINE Hyclate [Vibramycin 100 mg PO Q12HR #14 capsule 05/09/18 Unknown Rx CAP] HYDROcodone/APAP 5-325 [[place] 1 each PO Q4HR PRN #12 tablet 05/09/18 Unknown Rx 5/325] Cyclobenzaprine [Flexeril] 10 mg PO TID PRN #30 tablet 01/19/19 Unknown Rx Menthol/Camphor [[place] 1 applicatio TP QID PRN #1 tube 01/19/19 Unknown Rx Ointment] Naproxen [EC-Naproxen] 500 mg PO BID PRN #30 tablet.dr 01/19/19 Unknown Rx Ibuprofen [Motrin 800 MG tab] 800 mg PO Q8HR PRN #21 tablet 12/06/20 Unknown Rx Ofloxacin 0.3% [Ocuflox 0.3% opth] 1 drops OP QDAY 7 Days #1 bottle 12/06/20 Unknown Rx Allergies Allergy/AdvReac Type Severity Reaction Status Date / Time cefazolin sodium [From Ancef] Allergy Rash Verified 12/06/20 19:24 clindamycin Allergy Rash Verified 12/06/20 19:24 sulfamethoxazole Allergy Rash Verified 12/06/20 19:24 [From Bactrim] trimethoprim [From Bactrim] Allergy Rash Verified 12/06/20 19:24 ED Review of Systems ROS: Stated complaint: BLOOD PRESSURE/MIGRAINE Other details as noted in HPI Comment: All other systems reviewed and negative ED Past Medical Hx - Past Medical History Hx Hypertension: Yes Hx Congestive Heart Failure: No Hx Diabetes: Yes Hx Sickle Cell Disease: No Hx Asthma: No Hx COPD: No Hx HIV: Yes Additional medical history: HIV+ - Surgical History Past Surgical History?: No - Social History Smoking Status: Current Every Day Smoker - Medications Home Medications: Home Medications Medication Instructions Recorded Confirmed Last Taken Type Emtricita/Rilpivirine/Tenof Df 1 tab PO DAILY #30 tablet 05/17/14 08/09/14 08/08/14 Rx [Complera Tablet] Glipizide/Metformin HCl 2.5 mg PO DAILY #30 tablet 05/17/14 08/09/14 08/08/14 Rx [glipiZIDE-Metformin 2.5-250 mg] Losartan [Cozaar] 25 mg PO QDAY #30 tablet 05/17/14 08/09/14 08/07/14 Rx Cipro/Dexameth 0.3/0.1% [Ciprodex 2 drops OU BID #1 bottle 08/10/14 Unknown Rx Otic 0.3%-0.1%] Loratadine (Nf) [Claritin] 10 mg PO DAILY #30 tablet 06/18/15 Unknown Rx predniSONE [Deltasone] 20 mg PO QDAY #5 tab 06/18/15 Unknown Rx Cyclobenzaprine [Flexeril] 10 mg PO TID PRN #20 tablet 08/03/15 Unknown Rx Nitrofurantoin Monohyd/M-Cryst 100 mg PO BID #14 capsule 04/16/17 Unknown Rx [Macrobid 100 mg Capsule] Magnesium Oxide [Mag-Ox] 400 mg PO QDAY 2 Days #2 tablet 12/17/17 Unknown Rx Potassium Chloride [K-Dur] 20 meq PO BID 2 Days #4 tab 12/17/17 Unknown Rx Tramadol HCl [Ultram] 50 mg PO Q8H PRN #6 tablet 12/17/17 Unknown Rx Albuterol Mdi (or & Nicu Only) 2 puff IH QID PRN #1 inhalation 05/09/18 Unknown Rx [ProAir HFA Inhaler] DOXYCYCLINE Hyclate [Vibramycin 100 mg PO Q12HR #14 capsule 05/09/18 Unknown Rx CAP] HYDROcodone/APAP 5-325 [[place] 1 each PO Q4HR PRN #12 tablet 05/09/18 Unknown Rx 5/325] Cyclobenzaprine [Flexeril] 10 mg PO TID PRN #30 tablet 01/19/19 Unknown Rx Menthol/Camphor [[place] 1 applicatio TP QID PRN #1 tube 01/19/19 Unknown Rx Ointment] Naproxen [EC-Naproxen] 500 mg PO BID PRN #30 tablet. 01/19/19 Unknown Rx Ibuprofen [Motrin 800 MG tab] 800 mg PO Q8HR PRN #21 tablet 12/06/20 Unknown Rx Ofloxacin 0.3% [Ocuflox 0.3% opth] 1 drops OP QDAY 7 Days #1 bottle 12/06/20 Unknown Rx ED Physical Exam - General Limitations: No Limitations General appearance: alert, in no apparent distress - Head Head exam: Present: atraumatic, normocephalic - Eye Eye exam: Present: PERRL - Expanded Eye Exam Expanded Eyelids: Normal Inspection: Right Pupils: Regular, Round: Right Sclera/Conjunctival: Injection: Right, Exudate: Right Posterior chamber: Deferred: Right IOP measured with: other (Fluorescein uptake in the right cornea at approximately 7:00 linear line) - ENT ENT exam: Present: normal exam, normal external ear exam - Neck Neck exam: Present: normal inspection - Respiratory Respiratory exam: Absent: accessory muscle use - Cardiovascular Cardiovascular Exam: Present: regular rate - Neurological Exam Neurological exam: Present: alert, oriented X3, normal gait - Psychiatric Psychiatric exam: Present: normal affect, normal mood - Skin Skin exam: Present: warm, dry, intact, normal color. Absent: rash ED Course Vital Signs 12/06/20 19:22 Temperature 98.8 F Pulse Rate 85 Respiratory 18 Rate Blood Pressure 187/98 [Right] O2 Sat by Pulse 99 Oximetry ED Medical Decision Making - Medical Decision Making 50-year-old -[place] male that is noncompliant with his HIV and hypert ension presents to the emergency room for right thigh pain, photophobia and drainage that started this morning. Patient admits to a headache. Patient states he has not been on his HIV medicine or hypertension for well over 6 months. Patient states that he is usually followed by [facility] but has not been in a while. Patient denies any fever chills no nausea no vomiting not vaccinated. Has only taking an aspirin. Order eye kit and ibuprofen. Critical care attestation.: If time is entered above; I have spent that time in minutes in the direct care of this critically ill patient, excluding procedure time. ED Disposition Clinical Impression: Corneal abrasion, right Qualifiers: Encounter type: initial encounter Qualified Code(s): S05.01XA - Injury of conjunctiva and corneal abrasion without foreign body, right eye, initial encounter Disposition: HOME / SELF CARE / HOMELESS Is pt being admited?: No Does the pt Need Aspirin: No Condition: Stable Instructions: Corneal Abrasion, Inkh-oh-Laid Additional Instructions: Take medication as prescribed. Is very important for you to follow-up with an o phthalmologist in the next 24 hours. I have listed their information below for your convenience. Take your pain medication as needed. Prescriptions: Ibuprofen [Motrin 800 MG tab] 800 mg PO Q8HR PRN #21 tablet PRN Reason: Pain Ofloxacin 0.3% [Ocuflox 0.3% opth] 1 drops OP QDAY 7 Days #1 bottle Referrals: DEANN REYES MD [Staff Physician] - 3-5 Days Forms: Work/School Release Form(ED) Time of Disposition: 22:47
[2020-12-06] MEDS ORDERED: HYDROcodone/ACETAMINOPHEN 7.5-325MG TAB PO ONE (22:43)
== END 2020-12-06 23:30 | disposition home or self-care (01) ==
LOC: ED 18:01
DX: S05.01XA Injury of conjunctiva and corneal abrasion without foreign body, right eye, initial encounter (principal); I10 Essential (primary) hypertension; E11.8 Type 2 diabetes mellitus with unspecified complications; F17.200 Nicotine dependence, unspecified, uncomplicated; Z88.1 Allergy status to other antibiotic agents; Z88.2 Allergy status to sulfonamides; X58.XXXA Exposure to other specified factors, initial encounter; Y93.89 Activity, other specified; Y92.89 Other specified places as the place of occurrence of the external cause; Y99.8 Other external cause status
CPT/HCPCS: 99283

== ENCOUNTER 2021-04-29 02:06 | Emergency (ER) | payer SELFPAY ==
[2021-04-29] MEDS ORDERED: ONDANSETRON 4 MG/2 ML INJ IV ONE (02:34)
[2021-04-29] MEDS ORDERED: KETOROLAC 30 MG/1 ML INJ IV ONE (02:34)
[2021-04-29] MEDS ORDERED: SODIUM CHLORIDE 0.9% 1000 ML 1,000 ML IV ONE (02:34)
--- NOTE | 2021-04-29 02:49 | Emergency Department Report ---
ED General Adult HPI - General Stated complaint: BREATHING/STOMACH PAIN Time Seen by Provider: 04/29/21 02:34 - History of Present Illness Initial comments: Patient presents with a couple day history of chest pain and abdominal pain. He has back pain. He states he just does not feel well. He had been admitted to the hospital previously with pneumonia in both lungs. He states a Covid test was done but he was not told that he had coronavirus. He was at a different hospital. Patient states that he is completed all of the antibiotics. He states that he does not feel like his pneumonia got better. He is still having the pain as described. These are aching type pains in the chest, abdomen, and back. He states that he still has a cough. He still has hot flashes. He still is having trouble breathing on occasion. He came here for evaluation and treatment. - Related Data Previous Rx's Medication Instructions Recorded Last Taken Type Emtricita/Rilpivirine/Tenof Df 1 tab PO DAILY #30 tablet 05/17/14 08/08/14 Rx [Complera Tablet] Glipizide/Metformin HCl 2.5 mg PO DAILY #30 tablet 05/17/14 08/08/14 Rx [glipiZIDE-Metformin 2.5-250 mg] Losartan [Cozaar] 25 mg PO QDAY #30 tablet 05/17/14 08/07/14 Rx Cipro/Dexameth 0.3/0.1% [Ciprodex 2 drops OU BID #1 bottle 08/10/14 Unknown Rx Otic 0.3%-0.1%] Loratadine (Nf) [Claritin] 10 mg PO DAILY #30 tablet 06/18/15 Unknown Rx predniSONE [Deltasone] 20 mg PO QDAY #5 tab 06/18/15 Unknown Rx Magnesium Oxide [Mag-Ox] 400 mg PO QDAY 2 Days #2 tablet 12/17/17 Unknown Rx Potassium Chloride [K-Dur] 20 meq PO BID 2 Days #4 tab 12/17/17 Unknown Rx Albuterol Mdi (or & Nicu Only) 2 puff IH QID PRN #1 inhalation 05/09/18 Unknown Rx [ProAir HFA Inhaler] HYDROcodone/APAP 5-325 [[place] 1 each PO Q4HR PRN #12 tablet 05/09/18 Unknown Rx 5/325] Menthol/Camphor [[place] 1 applicatio TP QID PRN #1 tube 01/19/19 Unknown Rx Ointment] Ibuprofen [Motrin 800 MG tab] 800 mg PO Q8HR PRN #21 tablet 12/06/20 Unknown Rx Metoclopramide [Reglan] 10 mg PO ACHS #60 tablet 04/29/21 Unknown Rx Allergies Allergy/AdvReac Type Severity Reaction Status Date / Time cefazolin sodium [From Ancef] Allergy Rash Verified 04/29/21 02:52 clindamycin Allergy Rash Verified 04/29/21 02:52 sulfamethoxazole Allergy Rash Verified 04/29/21 02:52 [From Bactrim] trimethoprim [From Bactrim] Allergy Rash Verified 04/29/21 02:52 ED Review of Systems ROS: Stated complaint: BREATHING/STOMACH PAIN Other details as noted in HPI Comment: All other systems reviewed and negative Constitutional: fever Eyes: denies: vision change (Subjective) ENT: denies: epistaxis Respiratory: cough (Dry) Cardiovascular: as per HPI Endocrine: denies: unexplained weight loss Gastrointestinal: as per HPI Genitourinary: denies: dysuria Musculoskeletal: as per HPI Skin: denies: rash Neurological: denies: headache Hematological/Lymphatic: denies: easy bruising ED Past Medical Hx - Past Medical History Hx Hypertension: Yes Hx Congestive Heart Failure: No Hx Diabetes: Yes Hx Sickle Cell Disease: No Hx Asthma: No Hx COPD: No Hx HIV: Yes Additional medical history: HIV+ - Family History Family history: diabetes, hypertension - Social History Smoking Status: Current Every Day Smoker (We discussed tobacco cessation x3 minutes) - Medications Home Medications: Home Medications Medication Instructions Recorded Confirmed Last Taken Type Emtricita/Rilpivirine/Tenof Df 1 tab PO DAILY #30 tablet 05/17/14 08/09/14 08/08/14 Rx [Complera Tablet] Glipizide/Metformin HCl 2.5 mg PO DAILY #30 tablet 05/17/14 08/09/14 08/08/14 Rx [glipiZIDE-Metformin 2.5-250 mg] Losartan [Cozaar] 25 mg PO QDAY #30 tablet 05/17/14 08/09/14 08/07/14 Rx Cipro/Dexameth 0.3/0.1% [Ciprodex 2 drops OU BID #1 bottle 08/10/14 Unknown Rx Otic 0.3%-0.1%] Loratadine (Nf) [Claritin] 10 mg PO DAILY #30 tablet 06/18/15 Unknown Rx predniSONE [Deltasone] 20 mg PO QDAY #5 tab 06/18/15 Unknown Rx Magnesium Oxide [Mag-Ox] 400 mg PO QDAY 2 Days #2 tablet 12/17/17 Unknown Rx Potassium Chloride [K-Dur] 20 meq PO BID 2 Days #4 tab 12/17/17 Unknown Rx Albuterol Mdi (or & Nicu Only) 2 puff IH QID PRN #1 inhalation 05/09/18 Unknown Rx [ProAir HFA Inhaler] HYDROcodone/APAP 5-325 [[place] 1 each PO Q4HR PRN #12 tablet 05/09/18 Unknown Rx 5/325] Menthol/Camphor [[place] 1 applicatio TP QID PRN #1 tube 01/19/19 Unknown Rx Ointment] Ibuprofen [Motrin 800 MG tab] 800 mg PO Q8HR PRN #21 tablet 12/06/20 Unknown Rx Metoclopramide [Reglan] 10 mg PO ACHS #60 tablet 04/29/21 Unknown Rx ED Physical Exam - General Limitations: No Limitations, Other (Pulse ox noted and normal) General appearance: alert, in no apparent distress - Head Head exam: Present: atraumatic, normocephalic - Eye Eye exam: Present: normal appearance, EOMI. Absent: scleral icterus - ENT ENT exam: Present: mucous membranes dry, normal external ear exam - Neck Neck exam: Present: normal inspection. Absent: tenderness, meningismus - Respiratory Respiratory exam: Present: normal lung sounds bilaterally. Absent: respiratory distress - Cardiovascular Cardiovascular Exam: Present: regular rate, normal rhythm - GI/Abdominal GI/Abdominal exam: Present: soft. Absent: distended - Extremities Exam Extremities exam: Present: normal capillary refill - Back Exam Back exam: Absent: CVA tenderness (R), CVA tenderness (L) - Neurological Exam Neurological exam: Present: alert, oriented X3, CN II-XII intact, normal gait. Absent: motor sensory deficit - Psychiatric Psychiatric exam: Present: normal affect, normal mood - Skin Skin exam: Present: warm, dry ED Course Vital Signs 04/29/21 04/29/2122 02:41 02:50 03:00 Temperature 98.8 F Pulse Rate 95 H 88 94 H Respiratory 22 16 Rate Blood Pressure 219/119 Blood Pressure 208/117 [Left] O2 Sat by Pulse 97 100 97 Oximetry 04/29/21 04/29/21 04/29/21 03:30 03:38 04:00 Temperature Pulse Rate 94 H 92 H 97 H Respiratory 21 17 Rate Blood Pressure 218/115 207/115 Blood Pressure [Left] O2 Sat by Pulse 98 99 Oximetry 04/29/21 04/29/21 04:10 04:12 Temperature Pulse Rate 100 H Respiratory Rate Blood Pressure 217/109 Blood Pressure [Left] O2 Sat by Pulse 98 Oximetry - Reevaluation(s) Reevaluation #1: 04/29/21 02:49 IV and labs were ordered. Old records reviewed. Reevaluation #2: 04/29/21 04:05 Labs have been noted. Blood pressure was elevated and labetalol have been ordered. Currently, the patient is vomiting and dry heaving. Metoclopramide was ordered. Further labs have been added on. Reevaluation #3: 04/29/21 05:18 There is no further vomiting. Blood pressure was addressed. Patient was subsequently discharged. ED Medical Decision Making - Lab Data Result diagrams: 04/29/21 03:24 04/29/21 03:24 - EKG Data -: EKG Interpreted by Me - EKG Data 04/29/21 04:06 0330-EKG shows normal sinus rhythm with LVH. Rate is 93. QRS is normal at 95. QT corrected is normal at 472. Patient has no ST elevation suggestive of STEMI. He does have some J-point elevation consistent with his LVH in lead V1 and V2. There is no reciprocal changes suggestive of ischemia. Patient has T wave flattening in lead III. - Radiology Data Radiology results: report reviewed - Medical Decision Making Patient presents with back pain, chest pain, abdominal pain, and generalized malaise. He states that he has been having trouble breathing. He felt as though his pneumonia was not treated. Patient has no radiographic evidence of pneumonia. He does not appear to be toxic. There was no evidence of STEMI. He has no chest x-ray findings suggestive of aortic dissection. There was no pulse deficit. He does not have intractable nausea or vomiting. He does not have evidence of hepatitis or pancreatitis. He was referred for outpatient evaluation and follow-up. Critical Care Time: No Critical care attestation.: If time is entered above; I have spent that time in minutes in the direct care of this critically ill patient, excluding procedure time. ED Disposition Clinical Impression: Myalgia, Precordial chest pain, Generalized abdominal pain Nausea & vomiting Qualifiers: Vomiting type: unspecified Qualified Code(s): R11.2 - Nausea with vomiting, unspecified Disposition: 01 HOME / SELF CARE / HOMELESS Is pt being admited?: No Condition: Stable Instructions: Nonspecific Chest Pain, Adult, Nausea and Vomiting, Adult, Abdominal Pain, Adult, [id number], Pain Without a Known Cause Additional Instructions: Have a bland diet. Drink plenty of water. Return for problems. Follow-up with your family doctor or the referral doctor for recheck. Continue home medication. Do not eat any salt. Prescriptions: Metoclopramide [Reglan] 10 mg PO ACHS #60 tablet Referrals: PRIMARY CAREMD [Primary Care Provider] - 3-5 Days JOE MAGANA MD [Staff Physician] - 3-5 Days
--- NOTE | 2021-04-29 03:11 | XRay Report ---
CHEST 2 VIEWS INDICATION / CLINICAL INFORMATION: cough. COMPARISON: Chest x-ray 05/09/2018 FINDINGS: SUPPORT DEVICES: None. HEART / MEDIASTINUM: No significant abnormality. LUNGS / PLEURA: No significant pulmonary or pleural abnormality. No pneumothorax. ADDITIONAL FINDINGS: No significant additional findings. IMPRESSION: 1. No active cardiopulmonary disease. Signer Name: Kahlil Roberson II, MD Signed: 04/29/2021 3:06 AM Workstation Name: [id number]
[2021-04-29 03:43] LABS: Hematocrit 41.9 % (35.5-45.6); Hemoglobin 13.8 gm/dl (11.8-15.2); Mean Corpuscular HGB Conc 33 % (32-34); Mean Corpuscular Volume 88 fl (84-94); Platelet Count 264 K/mm3 (140-440); Red Blood Count 4.78 M/mm3 (3.65-5.03); Red Cell Distribution Width 14.1 % (13.2-15.2)
[2021-04-29 03:54] LABS: BUN/Creatinine Ratio 16; Blood Urea Nitrogen 14 mg/dL (9-20); Hemolysis Index 73
[2021-04-29] MEDS ORDERED: METOCLOPRAMIDE 10 MG/2 ML INJ IV ONE (04:03)
[2021-04-29 04:34] LABS: Alanine Aminotransferase 11 units/L (7-56); Albumin 3.9 g/dL (3.9-5)
[2021-04-29 04:35] LABS: Bilirubin,Direct < 0.2 mg/dL (0-0.2)
[2021-04-29] MEDS ORDERED: HALOPERIDOL LACTATE 5 MG/1 ML INJ IV ONE (04:56)
[2021-04-29] MEDS ORDERED: HALOPERIDOL LACTATE 5 MG/1 ML INJ IM ONE (05:36)
[2021-04-29 06:02] VITALS: BP 186/95
--- NOTE | 2021-04-29 10:05 | Electrocardiograph Report ---
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
== END 2021-04-29 06:30 | disposition home or self-care (01) ==
LOC: ED 02:06
DX: M79.10 Myalgia, unspecified site (principal); R07.2 Precordial pain; R10.84 Generalized abdominal pain; R11.2 Nausea with vomiting, unspecified; F17.200 Nicotine dependence, unspecified, uncomplicated; I10 Essential (primary) hypertension; E11.8 Type 2 diabetes mellitus with unspecified complications; Z88.1 Allergy status to other antibiotic agents; Z88.2 Allergy status to sulfonamides
CPT/HCPCS: 36415; 71046; 80048; 80076; 83690; 84484; 85027; 93005; 93010; 96361; 96372; 96374; 96375; 96376; 99284; J1630; J1885; J2405; J2765; J3490; J7030; Q0162

== ENCOUNTER 2021-05-03 16:12 | Emergency (ER) | payer OTHER ==
[2021-05-03] MEDS ORDERED: LACTATED RINGERS 1,000 ML IV ONE ×2 (17:12→19:13)
[2021-05-03] MEDS ORDERED: PANTOPRAZOLE 40 MG INJ IV ONE (17:12)
[2021-05-03] MEDS ORDERED: METOCLOPRAMIDE 10 MG/2 ML INJ IV ONE (17:12)
--- NOTE | 2021-05-03 17:16 | Emergency Department Report ---
ED Abdominal Pain HPI - General Chief Complaint: Abdominal Pain Stated Complaint: ABD PAIN/WEIGHT LOSS/VOMITING Time Seen by Provider: 05/03/21 16:49 Source: patient Mode of arrival: Ambulatory Limitations: No Limitations - History of Present Illness Initial Comments: Patient presents with mid abdominal pain associate with nausea and vomiting for the last several weeks. He states that he has been seen in the ER for different times. The last time he was seen, he came here. We did do a CT. Labs were obtained. Patient states that everything was unremarkable. He was told to follow-up with a primary care which he did. He was told by the primary care physician that if he was still vomiting that he should come back here so we would "admit him." Patient states that he is still vomiting so he came here to be admitted. He states that he is not able to keep anything down, this is both liquid and solid. He has no hematemesis or coffee-ground emesis. Has no melenic stool. He reports having periumbilical abdominal pain described as sharp and cramping. The pain seems to wax and wane. It does not radiate or migrate. He states that maybe 20 years ago he had similar symptoms and nothing was found until he was scoped. Then he was told he had an ulcer. - Related Data Previous Rx's Medication Instructions Recorded Last Taken Type Emtricita/Rilpivirine/Tenof Df 1 tab PO DAILY #30 tablet 05/17/14 08/08/14 Rx [Complera Tablet] Glipizide/Metformin HCl 2.5 mg PO DAILY #30 tablet 05/17/14 08/08/14 Rx [glipiZIDE-Metformin 2.5-250 mg] Losartan [Cozaar] 25 mg PO QDAY #30 tablet 05/17/14 08/07/14 Rx Albuterol Mdi (or & Nicu Only) 2 puff IH QID PRN #1 inhalation 05/09/18 Unknown Rx [ProAir HFA Inhaler] Dicyclomine [Bentyl] 20 mg PO QID PRN #20 tablet 05/03/21 Unknown Rx Metoclopramide [Reglan TAB] 10 mg PO ACHS #60 tablet 05/03/21 Unknown Rx Promethazine [Phenergan] 25 mg CA Q6HR PRN #10 supp.rect 05/03/21 Unknown Rx Allergies Allergy/AdvReac Type Severity Reaction Status Date / Time cefazolin sodium [From [facility]] Allergy Rash Verified 04/29/21 02:52 clindamycin Allergy Rash Verified 04/29/21 02:52 sulfamethoxazole Allergy Rash Verified 04/29/21 02:52 [From Bactrim] trimethoprim [From Bactrim] Allergy Rash Verified 04/29/21 02:52 ED Review of Systems ROS: Stated complaint: ABD PAIN/WEIGHT LOSS/VOMITING Other details as noted in HPI Comment: All other systems reviewed and negative Constitutional: denies: fever Eyes: denies: vision change ENT: denies: epistaxis Respiratory: denies: cough Cardiovascular: denies: chest pain Endocrine: denies: unexplained weight loss Gastrointestinal: as per HPI Genitourinary: denies: dysuria Musculoskeletal: denies: back pain Skin: denies: rash Neurological: denies: headache Hematological/Lymphatic: denies: easy bruising ED Past Medical Hx - Past Medical History Hx Hypertension: Yes Hx Congestive Heart Failure: No Hx Diabetes: Yes Hx Sickle Cell Disease: No Hx Asthma: No Hx COPD: No Hx HIV: Yes Additional medical history: HIV+ - Family History Family history: hypertension - Social History Smoking Status: Current Every Day Smoker (We discussed tobacco cessation x3 minutes) - Medications Home Medications: Home Medications Medication Instructions Recorded Confirmed Last Taken Type Emtricita/Rilpivirine/Tenof Df 1 tab PO DAILY #30 tablet 05/17/14 08/09/14 08/08/14 Rx [Complera Tablet] Glipizide/Metformin HCl 2.5 mg PO DAILY #30 tablet 05/17/14 08/09/14 08/08/14 Rx [glipiZIDE-Metformin 2.5-250 mg] Losartan [Cozaar] 25 mg PO QDAY #30 tablet 05/17/14 08/09/14 08/07/14 Rx Albuterol Mdi (or & Nicu Only) 2 puff IH QID PRN #1 inhalation 05/09/18 Unknown Rx [ProAir HFA Inhaler] Dicyclomine [Bentyl] 20 mg PO QID PRN #20 tablet 05/03/21 Unknown Rx Metoclopramide [Reglan TAB] 10 mg PO ACHS #60 tablet 05/03/21 Unknown Rx Promethazine [Phenergan] 25 mg CA Q6HR PRN #10 supp.rect 05/03/21 Unknown Rx ED Physical Exam - General Limitations: No Limitations, Other (Pulse ox noted and normal) General appearance: alert, in no apparent distress - Head Head exam: Present: atraumatic, normocephalic - Eye Eye exam: Present: normal appearance, EOMI - ENT ENT exam: Present: mucous membranes dry, normal external ear exam - Neck Neck exam: Present: normal inspection. Absent: meningismus - Respiratory Respiratory exam: Present: normal lung sounds bilaterally. Absent: respiratory distress - Cardiovascular Cardiovascular Exam: Present: normal rhythm, tachycardia - GI/Abdominal GI/Abdominal exam: Present: soft, tenderness (Periumbilical and mild). Absent: distended, guarding, rebound, pulsatile mass - Extremities Exam Extremities exam: Present: normal capillary refill - Back Exam Back exam: Absent: CVA tenderness (R), CVA tenderness (L) - Neurological Exam Neurological exam: Present: alert, oriented X3, CN II-XII intact. Absent: motor sensory deficit - Psychiatric Psychiatric exam: Present: normal affect, normal mood - Skin Skin exam: Present: warm, dry ED Course Vital Signs 05/03/21 16:41 Temperature 98.5 F Pulse Rate 104 H Respiratory 16 Rate Blood Pressure 132/84 [Left] O2 Sat by Pulse 97 Oximetry - Reevaluation(s) Reevaluation #1: 05/03/21 17:13 IV and labs ordered. Old records reviewed. Reevaluation #2: 05/03/21 21:29 Labs have been noted. Patient is tolerating liquids. IV fluids have been completed. We are still awaiting UA. Reevaluation #3: 05/03/21 22:08 UA was noted and the patient was discharged. ED Medical Decision Making - Lab Data Result diagrams: 05/03/21 18:06 05/03/21 18:06 - Medical Decision Making Patient presents with ongoing abdominal symptoms. Etiology for this remains unclear. There is no evidence of acute hepatitis or pancreatitis. He does not have distention or tympany to suggest bowel obstruction. He does not have peritonitis. There is no tenderness in McBurney's point to suggest appendicitis. He does not have evidence of biliary colic. There is no pulsatile mass on exam. Patient was treated and referred to GI for follow-up Critical Care Time: No Critical care attestation.: If time is entered above; I have spent that time in minutes in the direct care of this critically ill patient, excluding procedure time. ED Disposition Clinical Impression: Periumbilical pain Nausea & vomiting Qualifiers: Vomiting type: unspecified Qualified Code(s): R11.2 - Nausea with vomiting, unspecified Disposition: HOME / SELF CARE / HOMELESS Is pt being admited?: No Condition: Stable Instructions: Abdominal Pain, Adult, [id number], Nausea and Vomiting, Adult, Pain Without a Known Cause Additional Instructions: Have a brat diet. Drink plenty water. Return for problems. Follow-up with gastroenterology as referred. Consider endoscopy. Drink plenty of water. Return for any problems or concerns. Prescriptions: Dicyclomine [Bentyl] 20 mg PO QID PRN #20 tablet PRN Reason: abd pain Promethazine [Phenergan] 25 mg CA Q6HR PRN #10 supp.rect PRN Reason: nausea Metoclopramide [Reglan TAB] 10 mg PO ACHS #60 tablet Referrals: NORTH MAGANA MD [Primary Care Provider] - 3-5 Days JENI REYES MD [Staff Physician] - 3-5 Days
[2021-05-03 18:34] LABS: Basophils # (Auto) 0.1 K/mm3 (0.0-0.1); Basophils % (Auto) 0.9 % (0.0-1.8); Eosinophils % (Auto) 0.7 % (0.0-4.3); Hemoglobin 13.7 gm/dl (11.8-15.2); Lymphocytes # (Auto) 2.7 K/mm3 (1.2-5.4); Lymphocytes % (Auto) 42.2 % (13.4-35.0); Mean Corpuscular HGB Conc 33 % (32-34); Mean Corpuscular Volume 88 fl (84-94); Monocytes # (Auto) 0.4 K/mm3 (0.0-0.8); Monocytes % (Auto) 5.7 % (0.0-7.3); Platelet Count 271 K/mm3 (140-440); Red Blood Count 4.77 M/mm3 (3.65-5.03); Red Cell Distribution Width 13.3 % (13.2-15.2)
[2021-05-03 18:49] LABS: Albumin 3.5 g/dL (3.9-5); Calcium 9.2 mg/dL (8.4-10.2)
[2021-05-03] MEDS ORDERED: POTASSIUM CHLORIDE ER 20 MEQ TAB PO ONE (19:13)
[2021-05-03 21:28] LABS: Bacteria,Urine 1+ /HPF (Negative); Bilirubin,Urine NEG (Negative); Blood,Urine SM (Negative); Color,Urine Yellow (Yellow); Hyaline Casts,Urine 4 /LPF; Mucus,Urine FEW /HPF; RBC,Urine < 1.0 /HPF (0.0-6.0)
[2021-05-03 22:22] VITALS: BP 157/84
== END 2021-05-03 22:18 | disposition home or self-care (01) ==
LOC: ED 16:12
DX: R10.33 Periumbilical pain (principal); R11.2 Nausea with vomiting, unspecified; F17.200 Nicotine dependence, unspecified, uncomplicated; I10 Essential (primary) hypertension; E11.8 Type 2 diabetes mellitus with unspecified complications; Z88.1 Allergy status to other antibiotic agents; Z88.2 Allergy status to sulfonamides
CPT/HCPCS: 36415; 80053; 81001; 83690; 85025; 96361; 96374; 96375; 99283; C9113; J2765; J7120

== ENCOUNTER 2021-06-05 18:25 | Emergency (ER) | payer OTHER ==
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
--- NOTE | 2021-06-06 00:31 | XRay Report ---
CHEST 2 VIEWS INDICATION / CLINICAL INFORMATION: Chest pain. COMPARISON: 04/29/21. FINDINGS: SUPPORT DEVICES: None. HEART / MEDIASTINUM: The heart size is borderline. Pulmonary vasculature is normal. The aorta is norm al in caliber. LUNGS / PLEURA: No significant pulmonary or pleural abnormality. No pneumothorax. ADDITIONAL FINDINGS: There is an old healed fracture of the left mid clavicle. IMPRESSION: Borderline heart size without acute pulmonary disease. Signer Name: Gaudencio Lauren MD Signed: 06/06/2021 12:26 AM Workstation Name: [id number]
--- NOTE | 2021-06-06 00:34 | XRay Report ---
STERNUM 2 VIEWS INDICATION / CLINICAL INFORMATION: Sternal pain.. COMPARISON: None available. FINDINGS: There is no evidence of acute fracture, destructive lesion or other significant abnormality involving the sternum. Incidental note is made of an old healed fracture of the left mid clavicle. No other abnormality is s een. Signer Name: Gaudencio Lauren MD Signed: 06/06/2021 12:29 AM Workstation Name: [id number]
[2021-06-06] MEDS ORDERED: oxyCODONE /ACETAMINOPHEN 5-325MG TAB PO ONE (02:23)
[2021-06-06 03:58] VITALS: BP 158/84
--- NOTE | 2021-06-07 11:21 | Electrocardiograph Report ---
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
== END 2021-06-06 03:58 | disposition home or self-care (01) ==
LOC: ED 18:25
DX: S20.219A Contusion of unspecified front wall of thorax, initial encounter (principal); I10 Essential (primary) hypertension; E11.9 Type 2 diabetes mellitus without complications; Z20.2 Contact with and (suspected) exposure to infections with a predominantly sexual mode of transmission; Z88.1 Allergy status to other antibiotic agents; Z91.09 Other allergy status, other than to drugs and biological substances; F17.200 Nicotine dependence, unspecified, uncomplicated; V89.2XXA Person injured in unspecified motor-vehicle accident, traffic, initial encounter; Y93.89 Activity, other specified; Y92.89 Other specified places as the place of occurrence of the external cause; Y99.8 Other external cause status
CPT/HCPCS: 71046; 71120; 93005; 99283